=== PATIENT | male | born 1995 | race African-American/Black ===

== ENCOUNTER 2017-12-01 07:56 | Emergency (ER) | payer OTHER ==
[~2017-12-01] VITALS: Ht 180.3 cm; Wt 68.0 kg
[2017-12-01] MEDS ORDERED: KEFLEX500 M1 PO (09:07)
[2017-12-01 09:29] VITALS: BP 115/68
== END 2017-12-01 09:31 | disposition home or self-care (01) ==
LOC: M.ERS 07:56
DX: K13.0 Diseases of lips (principal); B08.1 Molluscum contagiosum

== ENCOUNTER 2018-11-25 14:33 | Emergency (ER) | payer OTHER ==
[~2018-11-25] VITALS: Ht 180.3 cm; Wt 68.0 kg
[~2018-11-25 14:33] MED LIST: KEFLEX500 M1 PO
[2018-11-25] MEDS ORDERED: ACTICIN 5% CREA60 G1 TOP (15:15)
[2018-11-25 15:28] VITALS: BP 144/88
[2018-11-26] MEDS ORDERED: ACTICIN 5% CREA60 G1 TOP (20:10)
[2018-11-26] MEDS ORDERED: HYDROXYZINE HCL25 M2 PO (20:11)
== END 2018-11-25 15:29 | disposition home or self-care (01) ==
LOC: M.ERS 14:33
DX: B86 Scabies (principal)

== ENCOUNTER 2018-11-26 19:50 | Emergency (ER) | payer OTHER ==
[~2018-11-26] VITALS: Ht 180.3 cm; Wt 68.0 kg
[~2018-11-26 19:50] MED LIST changes: +ACTICIN 5% CREA60 G1 TOP
[2018-11-26] MEDS ORDERED: ACTICIN 5% CREA60 G1 TOP (20:10)
[2018-11-26] MEDS ORDERED: HYDROXYZINE HCL25 M2 PO (20:11)
[2018-11-26 20:20] VITALS: BP 106/61
== END 2018-11-26 20:20 | disposition home or self-care (01) ==
LOC: M.ERS 19:50
DX: B86 Scabies (principal)